=== PATIENT | female | born 1935 | race Caucasian/White ===

== ENCOUNTER 2016-09-27 12:40 | Emergency (ER) | payer MEDICARE ==
[~2016-09-27 12:40] MED LIST: ALBUTEROL17 GM; CLARITIN10 M6 PO; CRESTOR40 MG PO; DUONEB 2.5-0.5 M3 ML IH; LEVAQUIN500 MG PO; LISINOPRIL-HCTZ; LISINOPRIL10 MG; LOSARTAN-HCTZ1 EAC2 PO; MUCINEX600 M1 PO; NASAL RELIEF30 ML NS; PRAVACHOL40 MG; PRAVACHOL80 MG; PREDNISONE20 MG PO; PROAIR HFA8.5 GM INH; SYMBICORT 160-1 PUFF INH; TYLENOL325 MG
[2016-09-27 14:32] LABS: BASO % 0.2 % (0-2); EOS % 3.3 % (0-7); EOSINOPHIL ABSOLUTE COUNT 0.4 tho/cmm (0.0-0.7); HCT-HEMATOCRIT 41.7 % (34.0-49.0); HGB-HEMOGLOBIN 13.8 gm/dl (12.0-15.5); IMMATURE GRANULOCYTES ABSOLUTE 0.03 tho/cmm (0-0.03); IMMATURE GRANULOCYTES PERCENT 0.3 % (0-0.3); LYMPH % 14.4 % (20-45); LYMPH ABSOLUTE COUNT 1.7 tho/cmm (0.8-4.5); MCHC MEAN CORPUSCULAR HGB CONC 33.1 % (32.0-36.0); MCV (MEAN CELL VOLUME) 93.7 fl (82.0-96.0); MEAN PLATELET VOLUME 10.2 cmc (9.4-12.4); MONO % 4.4 % (0-12); MONOCYTE ABSOLUTE COUNT 0.5 tho/cmm (0.0-1.2); NEUTROPHIL ABSOLUTE COUNT 9.1 tho/cmm (1.6-8.0); NEUTROPHIL-AUTOMATED 9.1 tho/cmm (1.6-8.0); NEUTROPHILS % 77.4 % (40-80); PLATELET COUNT 235 tho/cmm (150-450); RED BLOOD COUNT 4.45 mil/cmm (4.00-5.20); RED CELL DISTRIBUTION WIDTH 13.2 % (12.4-16.4); WHITE BLOOD COUNT 11.8 tho/cmm (4.0-10.0)
[2016-09-27 14:44] LABS: ANION GAP 16 mmol/L (0-20); BLOOD UREA NITROGEN 24 mg/dl (6-24); CARBON DIOXIDE-VENOUS 22 mmol/L (22-32); CHLORIDE 106 mmol/l (96-110); CREATININE 1.07 mg/dl (0.50-1.10); GLUCOSE 172 mg/dL (70-110); POTASSIUM 3.3 mmol/L (3.7-5.1); SODIUM 141 mmol/L (135-145); eGFR VALUE FOR BLACK 56 mL/Min
[2016-09-27] MEDS ORDERED: PREDNISONE20 M1 PO (14:49)
[2016-09-27] MEDS ORDERED: LEVAQUIN750 M1 PO (14:49)
== END 2016-09-27 15:28 ==
LOC: EDMED 12:40
PROVIDERS: Emergency Medicine
DX: J18.9 Pneumonia, unspecified organism (principal); E78.5 Hyperlipidemia, unspecified; J45.909 Unspecified asthma, uncomplicated
CPT/HCPCS: J2930